=== PATIENT | female | born 2000 | race Hispanic/Latino ===

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

== ENCOUNTER 2020-02-21 16:26 | Day surgery (SDC) | payer OTHER ==
[2020-02-21 16:56] VITALS: BP 127/84; TEMP 98.7
[2020-02-21 16:57] VITALS: BMI 30.7
--- NOTE | 2020-02-21 17:18 | PDOC.OBLPN ---
FMR OB Labor PN: Obj - Maternal Vital signs: BP: [] HR: [] RR: [] Tmax: [] Pox: []% on [] Wt: [] FMR OB Labor PN: A/P Discussion: Date/Time: 02/21/20 7464 This H&P was discussed with [] and [] who agree with the above documentation and plan.
--- NOTE | 2020-02-21 17:22 | PDOC.FPROB ---
FMR OB H&P: HPI - History of Present Illness Chief Complaint: cramping Indentification: 19 yo G1 at 38.2 wks History of Present Illness: 19 yo at 38.2 wks here for cramping. Every 3-5 min. Reports increased VD that is white and different from her normal discharge. Also reports fluid leaking, minimal amount, not continous. Denies VB. Endorses FM. Reports no problems this . No records currently in our files. Primary Care Physician: Demetra Guzman FMR OB H&P: Current - Care : 1 Para: 0 Gestational age: 38.2 Due date: 03/04/20 - OB Labs Blood type: unknown RH: unknown Antibody Screen: unknown HIV: unknown RPR: unknown HepBsAg: unknown Quad screen: unknown Urine drug screen: not done Gonorrhea: unknown Chlamydia: unknown GBS: negative (per patient) - Anatomy Survey Anatomy survey: No records FMR OB H&P: History - Past Medical History PMH: Denies - OB History OB History: First , reports no issues - [employer] History [employer] History: Denies h/o STIs Pap not indicated d/t age - Surgical History Sx History: Denies - Social History Social History: Denies TAD - Family History Family History: Non contributory FMR OB H&P: Medications - Current Home Medications: Medication Instructions Recorded Confirmed Type Vitamin 1 tablet PO DAILY 12/27/19 12/27/19 History Allergies/Adverse Reactions: Allergies Allergy/AdvReac Type Severity Reaction Status Date / Time No Known Allergies Allergy Verified 02/21/20 16:54 FMR OB H&P: ROS - Review of Systems General: denies: fever/chills, weight/appetite/sleep changes Eyes: denies: vision changes, scotomas ENT: denies: nasal congestion, rhinorrhea, sore throat Cardiovascular: reports: edema (trace). denies: chest pain Gastrointestinal: denies: abdominal pain, cramping, nausea, vomiting Genitourinary (Female): reports: vaginal discharge, contractions. denies: dysuria, vaginal pain, vaginal bleeding, vaginal pressure Musculoskeletal: denies: pain, tenderness Neurologic: denies: syncope, seizures Integumentary: denies: itching, rash, lesions Endocrine: denies: polydipsia, polyuria FMR OB H&P: Vital Signs - Maternal Vital signs: Vital Signs - First Documented Temp Pulse Resp BP Pulse Ox 98.7 F 101 H 18 127/84 97 02/21/20 16:54 02/21/20 16:54 02/21/20 16:54 02/21/20 16:54 02/21/20 16:54 - Heart Tones Baseline: 140 Variability: moderate (minimal for 1-2 minutes which improved to moderate after PO juice) Acceleration: present Deceleration: absent Category: category 1 FMR OB H&P: Physical Exam - Physical Exam General: NAD, awake, alert and oriented HEENT: normocephalic and atraumatic, EOMI, MMM, conjunctiva clear Neck: supple, FROM, trachea midline Heart: pulses present General: no respiratory distress, good air movement Abdomen: gravid, non-tender Musculoskeletal: FROM in all four extremities Skin: no rash, good tugor, capillary refill <2 seconds Lymphatic: no unusual bruising or bleeding, no purpura Psychiatric: intact recent and remote memory, good judgement and insight - Pelvic Exam Vulva: normal hair distribution Deviation from normal: white-green frothy discharge, no fluid with cough SVE: /-2 FMR OB H&P: A/P - Problem List (1) with 38 completed weeks gestation Current Visit: Yes Status: Acute Code(s): Z3A.38 - 38 WEEKS GESTATION OF Discussion: Date/Time: 02/21/20 8292 1. Term sIUP, labor r/o -/2, reported checked in office yesterday and was FT -CTX q4min on monitor, will PO hydrate -FHT: Cat I-II, minimal for 2-3 min, given juice now Cat I, continue monitoring -frothy discharge present- VP3 taken -Pt reports GBS neg, if admitted will need to call and verify -Recheck in 2 hours This H&P was discussed with Dr. Bearden who agree with the above documentation and plan.
[2020-02-21] MEDS ORDERED: hydrALAZINE 20 MG/ML VIAL SLOW IVP PRN (17:44)
--- NOTE | 2020-02-22 06:50 | PDOC.BPN ---
- Brief Progress Note Patient was unchanged after 2 hours. VP3 + for BV. Given Rx by residents. D/ c home with precautions.
== END 2020-02-21 19:20 | disposition home or self-care (01) ==
LOC: L&D/OP 16:26
PROVIDERS: ATTEND Obstetrics & Gynecology
DX: O99.89 Other specified diseases and conditions complicating pregnancy, childbirth and the puerperium (principal); R10.9 Unspecified abdominal pain; O23.593 Infection of other part of genital tract in pregnancy, third trimester; B96.89 Other specified bacterial agents as the cause of diseases classified elsewhere; Z3A.38 38 weeks gestation of pregnancy
CPT/HCPCS: 87480; 87510; 87660

== ENCOUNTER 2020-02-22 06:14 | Inpatient (IN) | payer OTHER ==
[2020-02-22] MEDS ORDERED: Ondansetron PF 4 MG/2 ML Vial IVP PRN ×2 (07:02→09:48)
[2020-02-22] MEDS ORDERED: Methylergonovine 0.2 MG/ML VIAL IM PRN (07:02)
[2020-02-22] MEDS ORDERED: Misoprostol 200 MCG TAB PR PRN (07:02)
[2020-02-22] MEDS ORDERED: Carboprost 250 MCG/ML AMP IM PRN (07:02)
[2020-02-22] MEDS ORDERED: NS / Oxytocin 40 units/1000ml 1,000 ML IV PRN (07:02)
[2020-02-22] MEDS ORDERED: Butorphanol Tartrate 1 MG/ML VIAL SLOW IVP PRN (07:02)
[2020-02-22] MEDS ORDERED: hydrALAZINE 20 MG/ML VIAL SLOW IVP PRN (07:02)
[2020-02-22] MEDS ORDERED: Diphenoxylate HCl/Atropine Tablet PO PRN ×2 (07:02)
[2020-02-22] MEDS ORDERED: Ibuprofen 800 MG TAB PO PRN ×2 (07:02→14:56)
[2020-02-22] MEDS ORDERED: Acetaminophen 500 MG TAB PO PRN (07:02)
[2020-02-22] MEDS ORDERED: Lidocaine 1% (PF) 30 ML VIAL SC PRN (07:02)
[2020-02-22] MEDS ORDERED: HYDROcodone/Acetaminophen 5/325 mg Tablet PO PRN ×2 (07:02)
[2020-02-22] MEDS ORDERED: Promethazine HCl 25 MG/ML VIAL IM PRN ×2 (07:02→09:48)
[2020-02-22 07:04] VITALS: BMI 29.2
[2020-02-22] MEDS: Lactated Ringer's 1,000 ML IV SCH ×2 (07:39→09:19)
[2020-02-22] MEDS ORDERED: Fentanyl 4 mcg/Bup 0.1% Cadd 100 ML ONE (07:51)
--- NOTE | 2020-02-22 08:03 | PDOC.FPROB ---
FMR OB H&P: HPI - History of Present Illness Chief Complaint: Increased contractions History of Present Illness: Patient is a 19F who reports that since her visit last night, she has had passage of a few blood clots with increased contractions. She endorse +FM, +VB, +vaginal discharge. She has not noticed a gush of fluid or leakage of clear fluid. She reports no problems this . Primary Care Physician: Demetra Guzman FMR OB H&P: Current - Care : 1 Para: 0 Gestational age: 38.3 Due date: 03/04/20 FMR OB H&P: History - Past Medical History PMH: noncontributory - OB History OB History: First , denies h/o STI, no pap 2/2 age - Surgical History Sx History: none - Social History Social History: Denies TAD - Family History Family History: Cousin with 2 children with trisomy 21 FMR OB H&P: Medications - Current Home Medications: Medication Instructions Recorded Confirmed Type Vitamin 1 tablet PO DAILY 12/27/19 02/22/20 History Metronidazole [metroNIDAZOLE] 500 mg PO Q12HR #14 tab 02/21/20 02/22/20 Rx Allergies/Adverse Reactions: Allergies Allergy/AdvReac Type Severity Reaction Status Date / Time No Known Allergies Allergy Verified 02/22/20 07:05 FMR OB H&P: ROS - Review of Systems General: denies: fever/chills, night sweats Eyes: denies: eye pain, vision changes ENT: denies: nasal congestion, rhinorrhea Respiratory: denies: cough, shortness of breath Gastrointestinal: reports: abdominal pain (Contractions), cramping. denies: vomiting Genitourinary (Female): reports: vaginal discharge, vaginal bleeding. denies: incontinence, dysuria Musculoskeletal: denies: pain, stiffness Neurologic: denies: numbness, syncope, seizures Integumentary: denies: itching, rash Endocrine: denies: polydipsia, polyuria Hematologic/Lymphatic: denies: prolonged or excessive bleeding, enlarged lymph nodes Psychological: denies: depression, anxiety FMR OB H&P: Vital Signs - Maternal Vital signs: Vital Signs - First Documented Temp Pulse Resp BP 97.7 F 93 20 141/90 H 02/22/20 06:49 02/22/20 06:49 02/22/20 06:49 02/22/20 06:49 - Heart Tones Baseline: 140 Variability: moderate (period of ~15-20 minutes minimal variability) Acceleration: present Deceleration: absent Category: category 1 [place] contractions every: 2-4 mins FMR OB H&P: Physical Exam - Physical Exam General: awake, alert and oriented HEENT: normocephalic and atraumatic, grossly normal vision Neck: supple, FROM Heart: pulses present General: no respiratory distress, good air movement Abdomen: gravid Neurological: no focal deficit Skin: no rash, good tugor Lymphatic: no unusual bruising or bleeding Psychiatric: intact recent and remote memory, normal mood and affect FMR OB H&P: A/P Disposition: admission for labor, LOS >48 hrs Discussion: Date/Time: 02/22/20 0803 1. Term sIUP labor -1 from on 02/21/20 -cousin with 2 children with trisomy 21-cfDNA negative -bedside US shows vertex baby -CTX q2-4min on monitor, will IV hydrate -FHT: Cat I-II, minimal for 15-20 min, now Cat I, continue monitoring -frothy discharge present- positive for BV -will need tx post op -Pt IS GBS neg per lab report -Epidrual placement -AROM post epidural placement -Continue monitoring, check q3-4 hrs This H&P was discussed with Dr. Bermeo and Dr. Ly who agree with the above documentation and plan.
[2020-02-22 08:33] LABS: Hemoglobin 11.7 g/dL (12.0-16.0); Mean Corpuscular HGB CONC 32.7 g/dL (32.0-36.0); Mean Corpuscular Hemoglobin 25.8 pg (25.0-35.0); Mean Corpuscular Volume 78.7 fL (78.0-98.0); Mean Platelet Volume 11.6 fL (7.4-10.4); Platelet Count 139 thou/uL (130-400); RBC Distribution Width 14.2 % (11.5-14.5); Red Blood Cell (RBC) Count 4.52 mill/uL (4.00-5.20); White Blood Cell (WBC) Count 14.4 thou/uL (4.8-10.8)
[2020-02-22 08:38] LABS: Syphilis Antibody Nonreactive (Nonreactive); Syphilis Antibody Index 0.05 S/CO (<1.00 Non-Reactive)
[2020-02-22 08:39] LABS: HBSAg Index 0.13 S/CO (0-0.99); Hep B Surf Ag Non-Reactive S/CO (NonReactive)
[2020-02-22] MEDS ORDERED: Lidocaine 2% MPF 10 ML AMP (For Epidural Use) ONE (09:12)
[2020-02-22] MEDS ORDERED: Naloxone HCl 0.4 mg/ml Vial IVP PRN ×2 (09:48)
[2020-02-22] MEDS ORDERED: Acetaminophen 325 MG TAB PO PRN (09:48)
[2020-02-22] MEDS ORDERED: diphenhydrAMINE 50 MG/ML VIAL IVP PRN (09:48)
[2020-02-22] MEDS ORDERED: Lactated Ringer's 500 ML IV PRN (09:48)
[2020-02-22] MEDS ORDERED: EPHEDRINE 25 MG/5 ML SYRINGE SLOW IVP PRN (09:48)
[2020-02-22] MEDS ORDERED: Communication Order-Pharmacy FS PRN (10:00)
[2020-02-22] MEDS ORDERED: Fentanyl 4 mcg/Bupivacaine 0.1% Cassette 100 ML EPIDURAL SCH (10:00)
--- NOTE | 2020-02-22 10:14 | PDOC.LDPN ---
Labor & Delivery Progress Note - Subjective Subjective: comfortable - Objective Vital signs reviewed and normal: yes General: NAD Uterine fundus: non tender SVE: 9 Dilation: anterior lip Effacement: 90% Station: 0 FHT: category 1, variability present [place] contractions every: 3-4 Procedures: AROM AROM: clear fluid Plan: continue plan of care -: 1. Term sIUP labor - (1000) from 1 -cousin with 2 children with trisomy 21-cfDNA negative -bedside US shows vertex baby -CTX q3-4min on monitor, will IV hydrate -FHT: Cat I with acels -frothy discharge present- positive for BV -will need tx post -Pt IS GBS neg per lab report -Epidrual received -Continue monitoring, check q1 hrs
[2020-02-22] MEDS ORDERED: NS w/ Oxytocin 10 units 500 ML IV SCH (11:45)
--- NOTE | 2020-02-22 13:15 | PDOC.OPDEL ---
OB Operative/Delivery Note Delivery Dr/Surgeon: Caroline/Sergio/Malachi Pre-Delivery Diagnosis: active labor Procedure/Post Delivery Dx: spontaneous vaginal delivery Weeks gestation: 38 (38.3) Anesthesia: epidural - Additional Findings/Plan Placenta delivered: spontaneous Repaired Obstetrical Laceration: none Estimated blood loss: 200 Compilations/Other Findings: Delivering Physician: Dr. Velazquez and Dr. Hill Attending Dr. Ly Procedure: Spontaneous Vaginal Delivery Anesthesia: epidural EBL: 200 ml Pre-op Diagnosis: 1. Term intrauterine in labor 2. Active BV Post-op Diagnosis: 1. Term intrauterine , delivered 2. same as above Indications: A 19y/o female presents in active labor Delivery Note: This is 19yo F -> 1 @ 38.3wks who delivered a viable F infant at 1236 on 02/22/20. Following an uneventful antepartum course, a vigorous F was delivered over an intact perineum in the occipitoanterior position. Anterior Shoulder and then remainder of the body delivered. No nuchal cord. The head was held down and mouth and nares were bulb suctioned. After delayed cord clamping, cord clamped and cut and cord blood collected. Placenta delivered intact with a 3 vessel cord noted. Fundal massage was performed and the fundus was firm. The cervix and vagina were inspected and found to be free of lacerations, with a periurethral abrasion that was hemostatic. Infant went to nursery in good condition for routine care. Apgars were 9/9 at 1 & 5 minutes, respectively. Patient tolerated delivery well and went to after routine recovery/care. Post delivery plan: routine recovery
[2020-02-22] MEDS ORDERED: Milk Of Magnesia 30 ML UDCUP PO PRN (14:56)
[2020-02-22] MEDS ORDERED: Bisacodyl 10 MG SUPP PR PRN (14:56)
[2020-02-22] MEDS ORDERED: NS / Oxytocin 40 units/1000ml 1,000 ML IV SCH (14:56)
[2020-02-22] MEDS: Ferrous Sulfate 325 MG TAB PO SCH (16:08)
[2020-02-22] MEDS: Docusate Calcium (SURFAK) 240 MG CAP PO SCH (21:38)
[2020-02-22] MEDS: metroNIDAZOLE 500 MG TAB PO SCH (21:38)
[2020-02-23] MEDS: Ibuprofen 800 MG TAB PO PRN ×3 (05:42→21:45)
--- NOTE | 2020-02-23 07:23 | PDOC.PP ---
Post Progress Note Post Day #: 1 Subjective: Patient reports no acute concerns, pain is minimal-just cramping, bleeding has decreased, she is ambulating well and has voided with no BM. She is bottle feeding but plans to bottle and breast feed. She has no concerns about going home. PO intake tolerated: yes Flatus: yes Ambulation: yes Vital Signs (12 hours) Temp Pulse Resp BP Pulse Ox 02/23/20 05:50 97.9 F 77 18 117/77 98 02/23/20 00:27 98.7 F 87 16 112/69 02/22/20 21:35 99.1 F 80 18 106/66 98 Weight Weight 72.575 kg - Physical Examination General: NAD Cardiovascular: RRR Respiratory: clear to auscultation bilaterally, non-labored breathing Abdominal: + bowel sounds, lochia, no distention, appropriately TTP Neurological: no gross focal deficits Psychiatric: A&Ox3, normal affect Result Diagrams: 02/22/20 08:27 Additional Labs: Post Labs Blood Type O POSITIVE 02/22/20 08:25 Hep Bs Antigen Non-Reactive S/CO (NonReactive) 02/22/20 07:43 - Assessment/Plan 19F who gave to TAGA female @ 38.3 via w/ no complications, pp day 1. 1 Term PP Day 1 - no complications in delivery - continue to monitor bleeding - routine pp care - Discussed breast feeding benefits, consulted - encouraged ambulation Dispo: routine pp care, anticipate D/C 02/23 with
[2020-02-23] MEDS: Ferrous Sulfate 325 MG TAB PO SCH ×2 (08:54→18:09)
[2020-02-23] MEDS: metroNIDAZOLE 500 MG TAB PO SCH ×2 (09:15→21:45)
[2020-02-23] MEDS: Docusate Calcium (SURFAK) 240 MG CAP PO SCH ×2 (09:15→21:45)
[2020-02-23] MEDS ORDERED: Adacel (T-DAP) 0.5 ML SYRINGE IM ONE (14:56)
--- NOTE | 2020-02-24 05:37 | PDOC.PP ---
Post Progress Note Post Day #: 2 Subjective: Patient is doing well. No acute concerns, no acute events overnight. Bleeding is decreasing, she is ambulating well, and has no difficulty voiding. She is ready to go home. PO intake tolerated: yes Flatus: yes Ambulation: yes Vital Signs (12 hours) Temp Pulse Resp BP Pulse Ox 02/23/20 19:48 98.3 F 76 18 133/67 98 Weight Weight 72.575 kg - Physical Examination General: NAD Cardiovascular: no m/r/g, RRR Respiratory: clear to auscultation bilaterally, non-labored breathing Abdominal: + bowel sounds, no distention, appropriately TTP Fundus firm & at: below umbilicus Neurological: no gross focal deficits Psychiatric: A&Ox3, normal affect Result Diagrams: 02/22/20 08:27 Additional Labs: Post Labs Blood Type O POSITIVE 02/22/20 08:25 Hep Bs Antigen Non-Reactive S/CO (NonReactive) 02/22/20 07:43 - Assessment/Plan 19F who gave to TAGA female @ 38.3 via w/ no complications, pp day 2. 1 Term PP Day 2 - no complications in delivery - continue to monitor bleeding - routine pp care - Discussed breast feeding benefits, consulted - encouraged ambulation Dispo: routine pp care, anticipate D/C today
[2020-02-24] MEDS: Ibuprofen 800 MG TAB PO PRN (05:42)
[2020-02-24] MEDS: Docusate Calcium (SURFAK) 240 MG CAP PO SCH (10:16)
[2020-02-24] MEDS: metroNIDAZOLE 500 MG TAB PO SCH (10:16)
[2020-02-24] MEDS: Ferrous Sulfate 325 MG TAB PO SCH ×2 (10:16→14:36)
[2020-02-24 12:09] VITALS: BP 138/73; TEMP 98.4
== END 2020-02-24 15:01 | disposition home or self-care (01) | DRG 807 ==
LOC: L&D/OP 06:14 → L&D 13:00 → 3SW 16:24
PROVIDERS: ADMIT Obstetrics & Gynecology; ATTEND Obstetrics & Gynecology
PROC: 10E0XZZ Delivery of Products of Conception, External Approach (ICD-10-PCS; principal; 2020-02-22)
PROC: 10907ZC Drainage of Amniotic Fluid, Therapeutic from Products of Conception, Via Natural or Artificial Opening (ICD-10-PCS; 2020-02-22)
DX: O71.82 Other specified trauma to perineum and vulva (principal); Z37.0 Single live birth; Z3A.38 38 weeks gestation of pregnancy
CPT/HCPCS: 36415; 51702; 85027; 86780; 86850; 86900; 86901; 87340; 87480; 87510; 87660; 99285; J2001; J2405; J2590